=== PATIENT | female | born 1970 | race Caucasian/White ===

== ENCOUNTER 2018-08-27 11:54 | Emergency (ER) | payer OTHER ==
[2018-08-27 12:45] LABS: #Basophils 0.1 thou/uL (0.0-0.2); #Eosinphils 0.2 thou/uL (0.0-0.7); #Lymphocytes 1.6 thou/uL (1.20-3.40); #Monocytes 0.6 thou/uL (0.11-0.59); %Basophils 1.5 % (0.0-1.0); %Eosinophils 3.5 % (0.0-10.0); %Monocytes 9.8 % (0.0-10.0); %Neutrophils 61.1 % (42.0-75.0); Hemoglobin 13.8 g/dL (12.0-16.0); Mean Corpuscular HGB CONC 34.3 g/dL (32.0-36.0); Mean Corpuscular Hemoglobin 28.5 pg (27.0-31.0); Mean Corpuscular Volume 83.1 fL (78.0-98.0); Mean Platelet Volume 7.6 fL (7.4-10.4); Platelet Count 233 thou/uL (130-400); RBC Distribution Width 11.9 % (11.5-14.5); Red Blood Cell (RBC) Count 4.84 mill/uL (4.20-5.40); White Blood Cell (WBC) Count 6.5 thou/uL (4.8-10.8)
[2018-08-27 13:01] LABS: ALT (SGPT) 29 U/L (8-55); AST (SGOT) 19 U/L (5-34); Albumin 4.2 g/dL (3.5-5.0); Alkaline Phosphatase 68 U/L (40-150); Anion Gap 12 mmol/L (10-20); BUN (Urea Nitrogen) 14 mg/dL (7.0-18.7); Bilirubin, Total 0.3 mg/dL (0.2-1.2); Calc. Creatinine Clearance 0 mL/min (70-130); Calcium 9.2 mg/dL (7.8-10.44); Carbon Dioxide 23 mmol/L (22-29); Chloride 106 mmol/L (98-107); Estimated GFR-MDRD 56; Globulin 2.5 g/dL (2.4-3.5); Glucose 114 mg/dL (70-105); Potassium 3.9 mmol/L (3.5-5.1); Protein, Total 6.7 g/dL (6.0-8.3); Sodium 137 mmol/L (136-145)
--- NOTE | 2018-08-27 13:20 | CT ---
CT BRAIN WITHOUT CONTRAST: Date: 08-27-18 FINDINGS: Noncontrast CT shows normal sized ventricles with no shift. No intracranial bleeding or extraaxial he matoma was seen. There is no evidence of mass, edema, or stroke. The skull appears intact. The visibl e paranasal sinuses and mastoid air cells are clear. IMPRESSION: No acute intracranial finding. POS: HOME
[2018-08-27] MEDS ORDERED: Ketorolac Tromethamine 30 MG/ML VIAL ONE (13:23)
--- NOTE | 2018-08-27 13:26 | CT ---
CT CERVICAL SPINE: Date: 08-27-[address] of the cervical spine was performed following trauma. Axial slices were acquired and then c oronal and sagittal reconstructions were done. FINDINGS: No fracture, dislocation or acute bony change was seen. There is loss of the normal cervical lordosis which could be due to muscle spasm. The C1-2 dens distance is normal and the soft tissues are normal in thickness. Disc space narrowing is present to some degree at all levels below C3. Degenerative ch anges are present in the spine, worse than is often seen at this age. Findings by level follow: C1-2: No acute findings. C2-3: No acute findings. C3-4: Moderate right foraminal narrowing due to osteophytes. Some centrally projecting osteophytes th at slightly efface the thecal sac. C4-5: Severe facet arthritis, particularly on the right. Severe right foraminal narrowing. C5-6: No acute findings. Mild left foraminal narrowing. C6-7: No acute findings. C7-T1: No acute findings. T1-2: No acute findings. Surrounding soft tissues show no mass or hematoma. IMPRESSION: Loss of the normal cervical lordosis and extensive degenerative change is noted. No fracture is seen. POS: HOME
--- NOTE | 2018-08-27 13:28 | CT ---
CT CHEST AND ABDOMEN AND PELVIS: 08/27/2018 TECHNIQUE: A spiral CT of the chest, abdomen, and pelvis was performed following trauma. Axial slices were acqu ired and then coronal and sagittal reconstructions were done. FINDINGS: CT of the thorax shows a normal appearing mediastinum. There is no sign of mediastinal hematoma or p ericardial effusion. No mass or significant adenopathy is seen. The lungs are fully inflated and cl ear. There is no infiltrate, pneumothorax, or pleural effusion. No fractures are appreciated in the ribs or the thoracic vertebrae. CT of the abdomen and pelvis shows the liver, spleen, pancreas, gallbladder, adrenal glands, kidneys, and abdominal aorta to all appear intact. No laceration or hematoma is seen in any organ. There do es appear to be an 8 to 9 mm cyst in the right kidney. Ultrasound would be confirmatory. The bowel shows no distention. No free air or free fluid is seen in the abdomen. CT of the pelvis shows no signs of hematoma, fractures, or fluid collections. No mass or inflammator y change is seen. The lumbar spine appears intact. Degenerative disk disease is prominent at L4-L5. The urinary bladder is distended and appears intact with no surrounding fluid. IMPRESSION: No acute traumatic findings in the chest, abdomen, or pelvis. Results of all scans on this patient called to Dr. Stewart at 1235 hours on 08/27/2018. CODE CR POS: HOME
[2018-08-27 13:35] LABS: Clarity Clear (Clear); Specific Gravity, Urine 1.015 (1.005-1.030); pH, Urine 8.5 (5.0-9.0)
[2018-08-27 13:36] LABS: Bilirubin Negative (Negative); Blood, Urine Negative (Negative); Glucose, Urine (Dipstick) Negative (Negative); Leukocyte Negative (Negative); Nitrite Negative (Negative); Protein, Urine (Dipstick) Negative (Neg-Trace); Urobilinogen 0.2 mg/dL (0.2-1.0)
== END 2018-08-27 14:22 | disposition home or self-care (01) ==
LOC: BURERS 11:54
DX: S16.1XXA Strain of muscle, fascia and tendon at neck level, initial encounter (principal); S39.012A Strain of muscle, fascia and tendon of lower back, initial encounter; S20.211A Contusion of right front wall of thorax, initial encounter; J45.909 Unspecified asthma, uncomplicated; I10 Essential (primary) hypertension; V43.62XA Car passenger injured in collision with other type car in traffic accident, initial encounter
CPT/HCPCS: 36415; 70450; 71260; 72125; 74177; 80053; 81003; 85025; 96374; G0390; J1885